=== PATIENT | male | born 1950 | race Caucasian/White ===

== ENCOUNTER → 2016-08-04 | Outpatient (CLI) | payer BC ==
--- NOTE | ~2016-08-04 | CT57 ---
[facility] A Service of [facility] RADIOLOGY TEXT RESULTS PATIENT: PABLO HENRY LOCATION: [facility] : 50 UNIT #: [id number] AGE: [address]: TRAVIS VYAS MD SEX: M ORDER DR: [id number] [address] [address] [id number] O MR#: [id number] Acc #: [id number] NAME: PABLO HENRY : 1950 SEX: M STUDY DATE/TIME: 08/04/2016 13:15 UNIT: [facility] ROOM: STUDY DESCRIPTION: CT Chest Wo Cont Attending Physician: Travis Vyas M.D. Referring Physician: Travis Vyas M.D. Ordering Physician: Travis Vyas M.D. Primary Care Physician: Primary Care Physician No MEDICAL IMAGING REPORT This report is preliminary unless electronic signature is present. EXAM CT of the chest without contrast INDICATION [employer]ice has seen calcifications near bottom of lung. Granulomatous lung disease. TECHNIQUE CT of the chest was performed without contrast. Selected HRCT imaging was obtained in the supine and prone positioning. This CT exam was performed with one or more of the following radiation dose reduction techniques: automatic exposure control, adjustment of mA and/or kV according to patient size, and iterative reconstruction. COMPARISON No comparisons available. FINDINGS Large calcified granuloma in the superior segment of the left lower lobe. There is no evidence of bronchiectasis, diffuse infiltrative lung disease or honeycombing. There is no suspicious pulmonary nodule or airspace consolidation. Calcified mediastinal lymph nodes. Coronary artery calcification. No pleural effusion. Limited imaging of the upper abdomen is unremarkable. IMPRESSION 1. Granulomatous calcifications. 2. No evidence of bronchiectasis, diffuse infiltrative lung bases are honeycombing. 1. Dictated by... [facility] A Service [facility] RADIOLOGY TEXT RESULTS PATIENT: PABLO HENRY LOCATION: [facility] : 50 UNIT #: [id number] AGE: [address]: TRAVIS VYAS MD SEX: M ORDER DR: Brooks Andersen M.D. THIS IS AN ELECTRONICALLY VERIFIED REPORT Brooks Andersen M.D. at 08/06/2016 9:11 AM MALINA/cam TD: 08/05/2016 08:21 JOB #: [id number] MEDICAL IMAGING REPORT Page 1 of 1
== END | disposition home or self-care (01) ==
LOC: SCT 12:43
DX: J98.4 Other disorders of lung (principal)
CPT/HCPCS: 71250